=== PATIENT | female | born 1945 | race Caucasian/White ===

== ENCOUNTER 2018-08-23 08:26 | Inpatient (IN) | payer MEDICARE, BC ==
[~2018-08-23] VITALS: Ht 157.5 cm; Wt 60.0 kg
[2018-08-23] MEDS ORDERED: normal saline 1000ML IV soln IVB ONE ×2 (08:35→10:45)
[2018-08-23 09:26] LABS: BASOPHILS % (AUTO) 0.1 % (0-1); EOSINOPHILS % (AUTO) 0 % (0-6); HEMATOCRIT 37.4 % (35.0-45.0); HEMOGLOBIN 12.4 g/dl (12.0-16.0); LYMPHOCYTES # (AUTO) 0.9 X10'3 (1.1-4.8); LYMPHOCYTES % (AUTO) 5.4 % (21-51); MEAN CORPUSCULAR HEMOGLOBIN 31.8 PG (27.0-31.0); MEAN CORPUSCULAR HGB CONC 33.3 % (33.0-36.5); MEAN CORPUSCULAR VOLUME 95.6 FL (78-98); MEAN PLATELET VOLUME 8.6 FL (7.4-10.4); MONOCYTES # (AUTO) 1.5 X10'3 (0-0.9); MONOCYTES % (AUTO) 9.2 % (2-12); NEUTROPHILS # (AUTO) 14.1 X10'3 (1.8-7.7); NEUTROPHILS % (AUTO) 85.3 % (42-75); PLATELET COUNT 280 X10'3 (140-440); RED BLOOD COUNT 3.91 X10'6 (4.20-5.60); RED CELL DISTRIBUTION WIDTH 13.9 % (11.5-14.5); WHITE BLOOD COUNT 16.5 X10'3 (4.5-11.0)
[2018-08-23 09:40] LABS: ALANINE AMINOTRANSFERASE 50 U/L (12-78); ALBUMIN 3.3 G/DL (3.4-5.0); ALBUMIN/GLOBULIN RATIO 0.8 (1.1-1.5); ALKALINE PHOSPHATASE 189 IU/L (46-116); ANION GAP 10 (8-16); ASPARTATE AMINO TRANSFERASE 48 U/L (10-37); BILIRUBIN,TOTAL 1.1 MG/DL (0.1-1.0); BLOOD UREA NITROGEN 26 MG/DL (7-18); BUN/CREATININE RATIO 27.4 (6.6-38.0); CALCIUM 9.7 MG/DL (8.5-10.1); CHLORIDE 105 MMOL/L (99-107); CREATININE 0.95 MG/DL (0.40-0.90); GLUCOSE 113 MG/DL (70-104); POTASSIUM 3.7 MMOL/L (3.5-5.1); SODIUM 143 MMOL/L (135-145); TOTAL CARBON DIOXIDE 27.8 MMOL/L (24-32); TOTAL PROTEIN 7.6 G/DL (6.4-8.2); eGFR 58 ML/MIN
[2018-08-23 09:50] LABS: MAGNESIUM 2.1 MG/DL (1.5-2.4)
[2018-08-23 10:03] LABS: PARTIAL THROMBOPLASTIN TIME 28 SECONDS (22-32); PROTHROMBIN TIME 10.3 SECONDS (9.0-12.0)
[2018-08-23 11:06] LABS: CLARITY,URINE SLIGHTLY CLOUDY (Clear); COLOR,URINE YELLOW (Yellow); GLUCOSE, URINE NEGATIVE (Neg); KETONES,URINE NEGATIVE (Neg); NITRITES, URINE POSITIVE (Neg); OCCULT BLOOD,URINE MODERATE (Neg); PROTEIN,URINE 30 mg/dl (Neg); UA COLLECTION TYPE STRAIGHT CATH
[2018-08-23 11:07] LABS: LEUKOCYTE ESTERASE ,URINE MODERATE (Neg)
[2018-08-23] MEDS ORDERED: levoFLOXACIN-Levaquin 500mg/D5 100 ML IV ONE (11:20)
[2018-08-23 11:24] LABS: SQUAMOUS EPITHELIAL CELL,UR MODERATE /LPF (FEW); WBC,URINE TNTC /HPF (0-4)
[2018-08-23 11:25] LABS: BACTERIA,URINE 4+ /HPF (Neg); RENAL CELLS, URINE MODERATE /HPF; TRANSITIONAL EPI CELLS,URINE FEW /HPF
[2018-08-23 11:26] LABS: RBC,URINE 0-2 /HPF (0-2)
[2018-08-23] MEDS ORDERED: ondansetron/PF 4mg/2ml inj IV PRN (11:45)
[2018-08-23] MEDS ORDERED: magnesium 1gm/100ml D5W IVPB 100 ML IV PRN (11:45)
[2018-08-23] MEDS ORDERED: acetaminophen 325mg tablet PO PRN ×2 (11:45)
[2018-08-23] MEDS ORDERED: potassium Cl 20 mEq SR tablet PO PRN ×2 (11:45)
[2018-08-23] MEDS ORDERED: potassium Cl 40MEQ/NS 500ml 500 ML IV PRN ×2 (11:45)
[2018-08-23] MEDS ORDERED: magnesium 4gm in 100ml NS 100 ML IV PRN (11:45)
[2018-08-23] MEDS ORDERED: mag hydrox/Alum hydrox/simeth 30ml oral suspension PO PRN (11:45)
[2018-08-23] MEDS ORDERED: magnesium hydroxide 30ml (MOM) UD suspension PO PRN (11:45)
[2018-08-23] MEDS ORDERED: HYDROcodone/acetaminophen 5mg/325mg tablet PO PRN (11:45)
[2018-08-23] MEDS ORDERED: magnesium Cl slow-release 64mg tablet PO PRN (11:45)
[2018-08-23] MEDS: potassium cl 20mEq in 1/2 NS 1,000 ML IV SCH (12:38)
[2018-08-23] MEDS ORDERED: EUCA50OI5 TP (12:59)
[2018-08-23] MEDS ORDERED: OLAN5TAB5 PO (12:59)
[2018-08-23] MEDS ORDERED: ACET-2119 PO (12:59)
[2018-08-23] MEDS ORDERED: MENT7.6L (12:59)
[2018-08-23] MEDS ORDERED: MAGN400O6 PO (12:59)
[2018-08-23] MEDS ORDERED: MEMA5TAB PO (12:59)
[2018-08-23] MEDS ORDERED: GUIATUSS (12:59)
[2018-08-23] MEDS ORDERED: SYN0.088T PO (12:59)
[2018-08-23] MEDS ORDERED: ALPR-624 PO (12:59)
[2018-08-23] MEDS ORDERED: AMLO2.5T2 PO (12:59)
[2018-08-23] MEDS ORDERED: CHOL10002 PO (12:59)
[2018-08-23] MEDS ORDERED: ALPR-624 (12:59)
[2018-08-23] MEDS ORDERED: LEVO88TA2 PO (13:52)
[2018-08-23] MEDS ORDERED: LEVO75TA PO (13:52)
[2018-08-23 18:00] VITALS: BP 109/56
[2018-08-23] MEDS ORDERED: ALPRAZolam 0.5mg tablet PO PRN (19:55)
[2018-08-23] MEDS: docusate sod 100mg capsule PO SCH (20:45)
[2018-08-24] VITALS: BP 125/76
[2018-08-24] MEDS: potassium cl 20mEq in 1/2 NS 1,000 ML IV SCH (04:58)
[2018-08-24 08:00] VITALS: BP 115/57
[2018-08-24] MEDS: K and/or MAG REPLACEMENT MC SCH (08:00)
[2018-08-24] MEDS ORDERED: memantine 5mg tablet PO SCH (08:00)
[2018-08-24 08:50] LABS: BASOPHILS % (AUTO) 0.1 % (0-1); EOSINOPHILS # (AUTO) 0.1 X10'3 (0-0.9); EOSINOPHILS % (AUTO) 0.7 % (0-6); HEMATOCRIT 31.9 % (35.0-45.0); HEMOGLOBIN 10.7 g/dl (12.0-16.0); LYMPHOCYTES # (AUTO) 0.9 X10'3 (1.1-4.8); LYMPHOCYTES % (AUTO) 8.3 % (21-51); MEAN CORPUSCULAR HGB CONC 33.5 % (33.0-36.5); MEAN CORPUSCULAR VOLUME 95.5 FL (78-98); MEAN PLATELET VOLUME 8.7 FL (7.4-10.4); MONOCYTES # (AUTO) 1.2 X10'3 (0-0.9); MONOCYTES % (AUTO) 11.3 % (2-12); NEUTROPHILS # (AUTO) 8.2 X10'3 (1.8-7.7); NEUTROPHILS % (AUTO) 79.6 % (42-75); PLATELET COUNT 243 X10'3 (140-440); RED BLOOD COUNT 3.34 X10'6 (4.20-5.60); RED CELL DISTRIBUTION WIDTH 13.8 % (11.5-14.5); WHITE BLOOD COUNT 10.3 X10'3 (4.5-11.0)
[2018-08-24 09:09] LABS: ALANINE AMINOTRANSFERASE 35 U/L (12-78); ALBUMIN 2.5 G/DL (3.4-5.0); ALBUMIN/GLOBULIN RATIO 0.7 (1.1-1.5); ALKALINE PHOSPHATASE 164 IU/L (46-116); ANION GAP 10 (8-16); ASPARTATE AMINO TRANSFERASE 40 U/L (10-37); BILIRUBIN,TOTAL 0.7 MG/DL (0.1-1.0); BLOOD UREA NITROGEN 23 MG/DL (7-18); BUN/CREATININE RATIO 26.1 (6.6-38.0); CALCIUM 9.1 MG/DL (8.5-10.1); CHLORIDE 107 MMOL/L (99-107); CREATININE 0.88 MG/DL (0.40-0.90); GLUCOSE 89 MG/DL (70-104); MAGNESIUM 1.9 MG/DL (1.5-2.4); POTASSIUM 3.7 MMOL/L (3.5-5.1); SODIUM 142 MMOL/L (135-145); TOTAL CARBON DIOXIDE 25.2 MMOL/L (24-32); TOTAL PROTEIN 6.2 G/DL (6.4-8.2); eGFR 63 ML/MIN
[2018-08-24] MEDS: docusate sod 100mg capsule PO SCH ×2 (10:41→20:09)
[2018-08-24] MEDS: levoTHYROXINE 75mcg tablet PO SCH (10:41)
[2018-08-24] MEDS: OLANZapine 5mg rapidly disint. tablet PO SCH (10:41)
[2018-08-24] MEDS: levoFLOXACIN-Levaquin 500mg/D5 100 ML IV SCH (10:41)
[2018-08-24] MEDS: levetiracetam 250mg tablet PO SCH ×2 (10:42→20:09)
[2018-08-24] MEDS: enoxaparin 40mg/0.4ml syringe SUBCUT SCH (10:58)
[2018-08-24 12:00] VITALS: BP 116/59
[2018-08-24] MEDS: vancomycin/NS 1 GM ADD-VANTAGE 250 ML X 1 DOSE IV SCH (12:26)
[2018-08-24] MEDS: acetaminophen 325mg tablet PO SCH ×3 (12:31→20:10)
[2018-08-24] MEDS: ALPRAZolam 0.5mg tablet PO PRN (17:19)
[2018-08-24] MEDS: magnesium hydroxide 30ml (MOM) UD suspension PO SCH (20:11)
[2018-08-24 23:52] VITALS: BP 127/67
[2018-08-25] VITALS: BP 123/80
[2018-08-25] MEDS: potassium cl 20mEq in 1/2 NS 1,000 ML IV SCH ×3 (00:48→23:17)
[2018-08-25] MEDS: acetaminophen 325mg tablet PO SCH ×7 (04:09→23:49)
[2018-08-25 07:32] VITALS: BP 113/78
[2018-08-25] MEDS ORDERED: levoTHYROXINE 88mcg tablet PO SCH ×2 (08:00)
[2018-08-25] MEDS ORDERED: non-formulary drug (Cholecalciferol (Vitamin D3) (Vitamin D3) 1 TAB) PO SCH (08:00)
[2018-08-25] MEDS: K and/or MAG REPLACEMENT MC SCH (08:00)
[2018-08-25] MEDS ORDERED: OLANZapine 5mg rapidly disint. tablet PO SCH (08:00)
[2018-08-25] MEDS: magnesium hydroxide 30ml (MOM) UD suspension PO SCH ×2 (08:01→20:00)
[2018-08-25] MEDS: enoxaparin 40mg/0.4ml syringe SUBCUT SCH (08:01)
[2018-08-25] MEDS: memantine 5mg tablet PO SCH (08:02)
[2018-08-25] MEDS: docusate sod 100mg capsule PO SCH ×2 (08:02→20:48)
[2018-08-25] MEDS: amLODIPine 2.5mg tablet PO SCH (08:02)
[2018-08-25] MEDS: OLANZapine 5mg rapidly disint. tablet PO SCH (08:03)
[2018-08-25] MEDS: vitamin D (cholecalciferol) 1,000 unit tablet PO SCH (08:03)
[2018-08-25] MEDS: levetiracetam 250mg tablet PO SCH ×2 (08:03→20:48)
[2018-08-25] MEDS: levoFLOXACIN-Levaquin 500mg/D5 100 ML IV SCH (08:05)
[2018-08-25] MEDS: vancomycin/NS 1 GM ADD-VANTAGE 250 ML X 1 DOSE IV SCH (10:04)
[2018-08-25 10:34] LABS: ALANINE AMINOTRANSFERASE 54 U/L (12-78); ALBUMIN 2.9 G/DL (3.4-5.0); ALBUMIN/GLOBULIN RATIO 0.7 (1.1-1.5); ALKALINE PHOSPHATASE 232 IU/L (46-116); ANION GAP 10 (8-16); ASPARTATE AMINO TRANSFERASE 60 U/L (10-37); BILIRUBIN,TOTAL 0.5 MG/DL (0.1-1.0); BLOOD UREA NITROGEN 13 MG/DL (7-18); BUN/CREATININE RATIO 15.1 (6.6-38.0); CALCIUM 9.1 MG/DL (8.5-10.1); CHLORIDE 106 MMOL/L (99-107); CREATININE 0.86 MG/DL (0.40-0.90); GLUCOSE 108 MG/DL (70-104); MAGNESIUM 1.8 MG/DL (1.5-2.4); POTASSIUM 3.5 MMOL/L (3.5-5.1); SODIUM 143 MMOL/L (135-145); TOTAL CARBON DIOXIDE 27.5 MMOL/L (24-32); eGFR 65 ML/MIN
[2018-08-25 11:10] LABS: BASOPHILS % (AUTO) 0.3 % (0-1); EOSINOPHILS # (AUTO) 0.1 X10'3 (0-0.9); EOSINOPHILS % (AUTO) 1.7 % (0-6); HEMATOCRIT 33.9 % (35.0-45.0); HEMOGLOBIN 11.2 g/dl (12.0-16.0); LYMPHOCYTES # (AUTO) 0.8 X10'3 (1.1-4.8); LYMPHOCYTES % (AUTO) 10.7 % (21-51); MEAN CORPUSCULAR HEMOGLOBIN 31.6 PG (27.0-31.0); MEAN CORPUSCULAR VOLUME 95.7 FL (78-98); MEAN PLATELET VOLUME 8.9 FL (7.4-10.4); MONOCYTES % (AUTO) 13.8 % (2-12); NEUTROPHILS # (AUTO) 5.5 X10'3 (1.8-7.7); NEUTROPHILS % (AUTO) 73.5 % (42-75); PLATELET COUNT 320 X10'3 (140-440); RED BLOOD COUNT 3.54 X10'6 (4.20-5.60); RED CELL DISTRIBUTION WIDTH 13.4 % (11.5-14.5); WHITE BLOOD COUNT 7.4 X10'3 (4.5-11.0)
[2018-08-25 11:30] VITALS: BP 135/71
[2018-08-25 19:00] VITALS: BP 162/71
[2018-08-25] MEDS: ALPRAZolam 0.5mg tablet PO PRN (20:48)
[2018-08-25] MEDS: lactobacillus rhamnosus 10,000 MMU CELLS/CAPSULE PO SCH (20:48)
[2018-08-26] VITALS: BP 145/70
[2018-08-26] MEDS: acetaminophen 325mg tablet PO SCH ×3 (04:00→12:00)
[2018-08-26 05:51] LABS: ALANINE AMINOTRANSFERASE 39 U/L (12-78); ALBUMIN 2.5 G/DL (3.4-5.0); ALBUMIN/GLOBULIN RATIO 0.7 (1.1-1.5); ALKALINE PHOSPHATASE 191 IU/L (46-116); ANION GAP 8 (8-16); ASPARTATE AMINO TRANSFERASE 32 U/L (10-37); BILIRUBIN,TOTAL 0.5 MG/DL (0.1-1.0); BLOOD UREA NITROGEN 11 MG/DL (7-18); BUN/CREATININE RATIO 12.6 (6.6-38.0); CHLORIDE 110 MMOL/L (99-107); CREATININE 0.87 MG/DL (0.40-0.90); GLUCOSE 84 MG/DL (70-104); MAGNESIUM 1.9 MG/DL (1.5-2.4); POTASSIUM 3.4 MMOL/L (3.5-5.1); SODIUM 147 MMOL/L (135-145); TOTAL PROTEIN 6.1 G/DL (6.4-8.2); eGFR 64 ML/MIN
[2018-08-26 07:21] LABS: BASOPHILS % (AUTO) 0.4 % (0-1); EOSINOPHILS # (AUTO) 0.1 X10'3 (0-0.9); EOSINOPHILS % (AUTO) 1.7 % (0-6); HEMATOCRIT 31.8 % (35.0-45.0); HEMOGLOBIN 10.6 g/dl (12.0-16.0); LYMPHOCYTES # (AUTO) 0.9 X10'3 (1.1-4.8); LYMPHOCYTES % (AUTO) 10.9 % (21-51); MEAN CORPUSCULAR HEMOGLOBIN 31.8 PG (27.0-31.0); MEAN CORPUSCULAR HGB CONC 33.2 % (33.0-36.5); MEAN CORPUSCULAR VOLUME 95.7 FL (78-98); MEAN PLATELET VOLUME 8.3 FL (7.4-10.4); MONOCYTES # (AUTO) 0.9 X10'3 (0-0.9); MONOCYTES % (AUTO) 11.5 % (2-12); NEUTROPHILS # (AUTO) 6.2 X10'3 (1.8-7.7); NEUTROPHILS % (AUTO) 75.5 % (42-75); PLATELET COUNT 284 X10'3 (140-440); RED BLOOD COUNT 3.32 X10'6 (4.20-5.60); RED CELL DISTRIBUTION WIDTH 13.8 % (11.5-14.5); WHITE BLOOD COUNT 8.1 X10'3 (4.5-11.0)
[2018-08-26] MEDS: OLANZapine 5mg rapidly disint. tablet PO SCH (08:33)
[2018-08-26] MEDS: levetiracetam 250mg tablet PO SCH (08:33)
[2018-08-26] MEDS: lactobacillus rhamnosus 10,000 MMU CELLS/CAPSULE PO SCH (08:33)
[2018-08-26] MEDS: memantine 5mg tablet PO SCH (08:33)
[2018-08-26] MEDS: amLODIPine 2.5mg tablet PO SCH (08:33)
[2018-08-26] MEDS: vitamin D (cholecalciferol) 1,000 unit tablet PO SCH (08:33)
[2018-08-26] MEDS: magnesium hydroxide 30ml (MOM) UD suspension PO SCH (08:34)
[2018-08-26] MEDS: docusate sod 100mg capsule PO SCH (08:34)
[2018-08-26] MEDS: enoxaparin 40mg/0.4ml syringe SUBCUT SCH (08:34)
[2018-08-26] MEDS: K and/or MAG REPLACEMENT MC SCH (08:42)
[2018-08-26] MEDS: levoTHYROXINE 75mcg tablet PO SCH (10:15)
[2018-08-26] MEDS ORDERED: levoFLOXACIN 500mg tablet PO SCH (11:00)
[2018-08-26] MEDS ORDERED: LEVE250T PO (12:29)
[2018-08-26] MEDS ORDERED: LACT1CAP26 PO (12:29)
[2018-08-26] MEDS ORDERED: LEVO500T89 PO (12:29)
[2018-08-27] MEDS ORDERED: VANCOMYCIN LEVEL IV NR (09:30)
== END 2018-08-26 14:05 | disposition home or self-care (01) | DRG 872 ==
LOC: ER 08:28 → ED HOLD 11:41 → EDBEDREQ 19:04 → SUR 3N 19:30
PROVIDERS: ADMIT Internal Medicine; ATTEND Family Medicine
DX: A41.9 Sepsis, unspecified organism (principal); N39.0 Urinary tract infection, site not specified; B96.20 Unspecified Escherichia coli [E. coli] as the cause of diseases classified elsewhere; E03.9 Hypothyroidism, unspecified; G40.909 Epilepsy, unspecified, not intractable, without status epilepticus; Z66 Do not resuscitate; F02.80 Dementia in other diseases classified elsewhere, unspecified severity, without behavioral disturbance, psychotic disturbance, mood disturbance, and anxiety; W18.39XA Other fall on same level, initial encounter; G30.9 Alzheimer's disease, unspecified; I10 Essential (primary) hypertension; Z88.0 Allergy status to penicillin; Z88.8 Allergy status to other drugs, medicaments and biological substances; Y93.89 Activity, other specified; Y92.89 Other specified places as the place of occurrence of the external cause; Y99.8 Other external cause status
CPT/HCPCS: 36415; 70450; 71045; 80053; 81001; 83605; 83735; 84443; 84484; 85025; 85610; 85730; 87040; 87070; 87077; 87088; 87186; 93005; 96360; 97116; 97162; 97530; 99285; J1650; J1956; J3370